=== PATIENT | female | born 1990 | race American Indian/Alaskan Native ===

== ENCOUNTER 2021-04-06 15:16 | Emergency (ER) | payer OTHER ==
[2021-04-06 16:40] VITALS: BP 151/83
--- NOTE | 2021-04-06 20:01 | Event Note ---
ED Screening Note ED Screening Note: pt presents for cough, abd pain radiates to back, nausea no dysuria no v/d This initial assessment/diagnostic orders/clinical plan/treatment(s) is/are subject to change based on patients health status, clinical progression and re- assessment by fellow clinical providers in the ED. Further treatment and workup at subsequent clinical providers discretion. Patient/guardian urged not to elope from the ED as their condition may be serious if not clinically assessed and managed. Initial orders include: labs, urine, xr
--- NOTE | 2021-04-06 20:37 | Emergency Department Report ---
ED Lower Extremity HPI - General Chief Complaint: Abdominal Pain Stated Complaint: Cold Symptoms, Headache, Abdominal Pain Time Seen by Provider: 04/06/21 20:00 Source: patient Mode of arrival: Ambulatory Limitations: No Limitations - History of Present Illness Initial Comments: pt presents for cough, abd pain radiates to back, nausea, no dysuria,no v/d. Patient notes symptoms for the past 3 days. Symptoms are exacerbated by activity. Symptoms are relieved by nothing tried. She is not Covid vaccinated, patient has history of asthma, and GERD. MD Complaint: knee injury - Related Data Previous Rx's Medication Instructions Recorded Last Taken Type Ondansetron [Zofran Odt] 4 mg PO Q8HR PRN #9 tab.rapdis 04/06/21 Unknown Rx cephALEXin [Keflex] 500 mg PO BID 3 Days #6 cap 04/06/21 Unknown Rx Allergies Allergy/AdvReac Type Severity Reaction Status Date / Time house dust Allergy Itching Verified 04/06/21 16:41 lemon Allergy Anaphylaxis Verified 04/06/21 16:41 ED Review of Systems ROS: Stated complaint: Cold Symptoms, Headache, Abdominal Pain Other details as noted in HPI Constitutional: chills, malaise Eyes: denies: eye pain, eye discharge, vision change ENT: as per HPI, congestion. denies: ear pain, throat pain Respiratory: cough. denies: shortness of breath Cardiovascular: denies: chest pain Gastrointestinal: abdominal pain, nausea. denies: vomiting, diarrhea, constipation, melena Genitourinary: denies: urgency, dysuria, frequency, hematuria, discharge Musculoskeletal: back pain Skin: denies: rash, lesions Neurological: denies: headache, weakness, paresthesias Psychiatric: as per HPI Hematological/Lymphatic: denies: easy bleeding, easy bruising ED Past Medical Hx - Medications Home Medications: Home Medications Medication Instructions Recorded Confirmed Last Taken Type Ondansetron [Zofran Odt] 4 mg PO Q8HR PRN #9 tab.rapdis 04/06/21 Unknown Rx cephALEXin [Keflex] 500 mg PO BID 3 Days #6 cap 04/06/21 Unknown Rx ED Physical Exam - General Limitations: No Limitations General appearance: alert, in no apparent distress - Head Head exam: Present: atraumatic, normocephalic - Eye Eye exam: Present: normal appearance, EOMI Pupils: Present: normal accommodation - ENT ENT exam: Present: mucous membranes moist - Neck Neck exam: Present: normal inspection, full ROM. Absent: tenderness - Respiratory Respiratory exam: Present: normal lung sounds bilaterally. Absent: respiratory distress, wheezes, stridor, chest wall tenderness - Cardiovascular Cardiovascular Exam: Present: regular rate, normal rhythm, normal heart sounds. Absent: systolic murmur, diastolic murmur, rubs, gallop - GI/Abdominal GI/Abdominal exam: Present: soft, normal bowel sounds. Absent: distended, tenderness, guarding, rebound, rigid, bruit, hernia - Rectal Rectal exam: Present: deferred - Extremities Exam Extremities exam: Present: normal inspection, full ROM, normal capillary refill. Absent: tenderness - Back Exam Back exam: Present: normal inspection, full ROM. Absent: CVA tenderness (R), CVA tenderness (L) - Neurological Exam Neurological exam: Present: alert, oriented X3, CN II-XII intact, normal gait - Psychiatric Psychiatric exam: Present: normal affect, normal mood - Skin Skin exam: Present: warm, dry, intact, normal color. Absent: rash ED Course Vital Signs 04/06/21 16:39 Temperature 98.6 F Pulse Rate 71 Respiratory 20 Rate Blood Pressure 151/83 [Left] O2 Sat by Pulse 98 Oximetry ED Lower Extremity MDM - Lab Data Result diagrams: 04/06/21 20:14 04/06/21 20:14 Labs 04/06/21 04/06/21 04/06/21 20:14 20:14 20:14 WBC 7.0 RBC 5.02 Hgb 12.5 Hct 39.9 MCV 80 MCH 25 L MCHC 31 RDW 16.1 H Plt Count 245 Lymph % (Auto) 47.0 H [place] % (Auto) 8.4 H Eos % (Auto) 4.5 H Baso % (Auto) 0.6 Lymph # (Auto) 3.3 Shelby # (Auto) 0.6 Eos # (Auto) 0.3 Baso # (Auto) 0.0 Seg Neutrophils % 39.5 L Seg Neutrophils # 2.7 Sodium 140 Potassium 4.1 Chloride 104.0 Carbon Dioxide 22 Anion Gap 18 BUN 11 Creatinine 0.6 Estimated GFR > 60 BUN/Creatinine Ratio 18 Glucose 99 Calcium 9.8 Total Bilirubin < 0.20 AST 31 ALT 45 Alkaline Phosphatase 70 Total Protein 7.6 Albumin 4.6 Albumin/Globulin Ratio 1.5 Lipase 26 HCG, Qual Negative Urine Color Urine Turbidity Urine pH Ur Specific [place] Urine Protein Urine Glucose (UA) Urine Ketones Urine Blood Urine Nitrite Urine Bilirubin Urine Urobilinogen Ur Leukocyte Esterase Urine WBC (Auto) Urine RBC (Auto) U Epithel Cells (Auto) Urine Mucus 04/06/21 21:01 WBC RBC Hgb Hct MCV MCH MCHC RDW Plt Count Lymph % (Auto) Shelby % (Auto) Eos % (Auto) Baso % (Auto) Lymph # (Auto) [place] # (Auto) Eos # (Auto) Baso # (Auto) Seg Neutrophils % Seg Neutrophils # Sodium Potassium Chloride Carbon Dioxide Anion Gap BUN Creatinine Estimated GFR BUN/Creatinine Ratio Glucose Calcium Total Bilirubin AST ALT Alkaline Phosphatase Total Protein Albumin Albumin/Globulin Ratio Lipase HCG, Qual Urine Color Yellow Urine Turbidity Slightly-cloudy Urine pH 5.0 Ur Specific [place] 1.019 Urine Protein <15 mg/dl Urine Glucose (UA) Neg Urine Ketones Neg Urine Blood Mod Urine Nitrite Neg Urine Bilirubin Neg Urine Urobilinogen < 2.0 Ur Leukocyte Esterase Tr Urine WBC (Auto) 6.0 Urine RBC (Auto) 10.0 U Epithel Cells (Auto) 9.0 Urine Mucus Few - Radiology Data Radiology results: report reviewed, image reviewed CHEST 2 VIEWS INDICATION / CLINICAL INFORMATION: cough. COMPARISON: None available. FINDINGS: SUPPORT DEVICES: None. HEART / MEDIASTINUM: No significant abnormality. LUNGS / PLEURA: No significant pulmonary or pleural abnormality. No pneumothorax. ADDITIONAL FINDINGS: No significant additional findings. IMPRESSION: 1. No acute findings. Signer Name: Pranay Bonds MD Signed: 04/06/2021 9:23 PM Workstation Name: [id number] - Medical Decision Making Chest x-ray normal, CBC CMP normal, UA noted for mild leukocytes and white blood cells plan DC to home, diagnosis viral syndrome, follow-up with your primary care doctor in 2 to 3 days. Return to emergency department should symptoms worsen. Patient verbalized agreement and understanding of discharge plan. Patient DC'd home in stable condition at this time. Critical care attestation.: If time is entered above; I have spent that time in minutes in the direct care of this critically ill patient, excluding procedure time. ED Disposition Clinical Impression: Viral syndrome Abdominal pain Qualifiers: Abdominal location: generalized Qualified Code(s): R10.84 - Generalized abdominal pain Disposition: HOME / SELF CARE / HOMELESS Is pt being admited?: No Does the pt Need Aspirin: No Condition: Stable Instructions: Abdominal Pain (ED), Abdominal Pain, Adult, Viral Illness, Adult Additional Instructions: Take medications as prescribed, follow-up with your doctor in 2 to 3 days. Hydrate as directed. Return to emergency department should symptoms worsen. Prescriptions: cephALEXin [Keflex] 500 mg PO BID 3 Days #6 cap Ondansetron [Zofran Odt] 4 mg PO Q8HR PRN #9 tab.rapdis PRN Reason: Nausea Referrals: PRIMARY CAREMD [Primary Care Provider] - 3-5 Days RENO BLUNT MD [Staff Physician] - 3-5 Days Forms: Work/School Release Form(ED) Time of Disposition: 22:57
[2021-04-06 20:43] LABS: Basophils % (Auto) 0.6 % (0.0-1.8); Eosinophils # (Auto) 0.3 K/mm3 (0.0-0.4); Eosinophils % (Auto) 4.5 % (0.0-4.3); Hematocrit 39.9 % (30.3-42.9); Hemoglobin 12.5 gm/dl (10.1-14.3); Lymphocytes # (Auto) 3.3 K/mm3 (1.2-5.4); Mean Corpuscular HGB Conc 31 % (30-34); Mean Corpuscular Volume 80 fl (79-97); Monocytes # (Auto) 0.6 K/mm3 (0.0-0.8); Monocytes % (Auto) 8.4 % (0.0-7.3); Platelet Count 245 K/mm3 (140-440); Red Blood Count 5.02 M/mm3 (3.65-5.03); Red Cell Distribution Width 16.1 % (13.2-15.2)
[2021-04-06 21:03] LABS: Alanine Aminotransferase 45 units/L (7-56); Albumin 4.6 g/dL (3.9-5); Blood Urea Nitrogen 11 mg/dL (7-17); Calcium 9.8 mg/dL (8.4-10.2); Hemolysis Index 8
[2021-04-06 21:23] LABS: Bilirubin,Urine NEG (Negative); Blood,Urine MOD (Negative); Color,Urine Yellow (Yellow); Mucus,Urine FEW /HPF; Protein,Urine <15 mg/dL mg/dL (Negative); Urobilinogen,Urine < 2.0 mg/dL (<2.0)
--- NOTE | 2021-04-06 21:27 | XRay Report ---
CHEST 2 VIEWS INDICATION / CLINICAL INFORMATION: cough. COMPARISON: None available. FINDINGS: SUPPORT DEVICES: None. HEART / MEDIASTINUM: No significant abnormality. LUNGS / PLEURA: No significant pulmonary or pleural abnormality. No pneumothorax. ADDITIONAL FINDINGS: No significant additional findings. IMPRESSION: 1. No acute findings. Signer Name: Pranay Bonds MD Signed: 04/06/2021 9:23 PM Workstation Name: [id number]
[2021-04-06 21:29] LABS: BUN/Creatinine Ratio 18
[2021-04-06] MEDS ORDERED: ACETAMINOPHEN 500 MG TAB PO ONE (22:23)
[2021-04-06] MEDS ORDERED: IBUPROFEN 600 MG TAB PO ONE (22:23)
== END 2021-04-06 23:52 | disposition home or self-care (01) ==
LOC: ED 15:16
DX: B34.9 Viral infection, unspecified (principal); R10.30 Lower abdominal pain, unspecified; R05.9 Cough, unspecified; Z91.018 Allergy to other foods; Z91.09 Other allergy status, other than to drugs and biological substances; Z79.899 Other long term (current) drug therapy
CPT/HCPCS: 36415; 71046; 80053; 81001; 83690; 84703; 85025; 99284

== ENCOUNTER 2021-07-05 09:27 | Outpatient (CLI) | payer OTHER ==
--- NOTE | 2021-07-05 11:35 | Ultrasound Report ---
ULTRASOUND ABDOMEN, COMPLETE INDICATION / CLINICAL INFORMATION: PERIUMBILICAL PAIN R10.33. COMPARISON: None available. FINDINGS: PANCREAS: Not well seen due to overlying bowel gas. ABDOMINAL AORTA: No significant abnormality. IVC: No significant abnormality. LIVER: The liver is echogenic and measures 18.3 cm. Portal vein is patent. GALLBLADDER: No significant abnormality. BILE DUCTS: No significant abnormality. Common bile duct measures 2 mm. KIDNEYS: Right: No significant abnormality. Left: No significant abnormality. SPLEEN: No significant abnormality. FREE FLUID: None. ADDITIONAL FINDINGS: No sonographic abnormality in the left lower quadrant in the patient's area of p ain. IMPRESSION: 1. Hepatomegaly and hepatic steatosis. Signer Name: Torrey Larsen MD Signed: 07/05/2021 11:31 AM Workstation Name: [email or web address]
--- NOTE | 2021-07-05 13:44 | Ultrasound Report ---
ULTRASOUND PELVIS INDICATION / CLINICAL INFORMATION: PERIUMBILICAL PAIN R10.33. TECHNIQUE: Transabdominal and Transvaginal. Duplex Color Doppler used: Yes. COMPARISON: None available FINDINGS: UTERUS: - Appearance: No significant abnormality. - Size (cm): 9.3 x 6.5 x 5.1 cm. - Endometrial Complex (if present): Mild thickening. Trace fluid.. Thickness in cm (if measured) = 1. 7 cm. - Mass or cyst: None. - Additional findings: None. RIGHT ADNEXA: The right ovary measures 5.2 x 5.4 x 3.3 cm. Dominant follicle measuring 2.7 cm. Normal color Doppler blood flow. LEFT ADNEXA: The left ovary measures 3.7 x 1.8 x 1.9 cm. No significant ovarian cyst or mass. Normal color Doppler blood flow. URINARY BLADDER: No significant abnormality. FREE FLUID: None. ADDITIONAL FINDINGS: None. IMPRESSION: 1. Mild endometrial thickening. Please correlate with stage of patient's menstrual cycle. 2. Otherwise, no significant abnormality. Scribed by: Erika Fields RDMS, LULY, FORD Scribed: 07/05/2021 10:58 AM I have reviewed the images, agree with this report, and edited this report as needed. Signer Name: Madi Weems MD Signed: 07/05/2021 1:40 PM Workstation Name: [email or web address]
== END 2021-07-05 09:28 | disposition home or self-care (01) ==
LOC: US 09:27
PROVIDERS: ATTEND Internal Medicine
DX: K76.0 Fatty (change of) liver, not elsewhere classified (principal); R16.0 Hepatomegaly, not elsewhere classified; R93.89 Abnormal findings on diagnostic imaging of other specified body structures; N88.8 Other specified noninflammatory disorders of cervix uteri
CPT/HCPCS: 76700; 76830; 76856

== ENCOUNTER 2021-08-05 10:39 | Outpatient (CLI) | payer OTHER ==
--- NOTE | 2021-08-05 13:58 | XRay Report ---
CHEST 2 VIEWS INDICATION / CLINICAL INFORMATION: CHEST PAIN,UNSPECIFIED R07.9. COMPARISON: 04/06/2021 FINDINGS: SUPPORT DEVICES: None. HEART / MEDIASTINUM: No significant abnormality. LUNGS / PLEURA: No significant pulmonary or pleural abnormality. No pneumothorax. ADDITIONAL FINDINGS: No significant additional findings. IMPRESSION: 1. No acute findings. Signer Name: Moo Castillo MD Signed: 08/05/2021 1:53 PM Workstation Name: [email or web address]
== END 2021-08-05 10:40 | disposition home or self-care (01) ==
LOC: XRAY 10:39
PROVIDERS: ATTEND Internal Medicine
DX: R07.9 Chest pain, unspecified (principal)
CPT/HCPCS: 71046